=== PATIENT | female | born 1950 | race Two or more races ===

== ENCOUNTER 2017-12-08 17:12 | Emergency (ER) | payer OTHER ==
[~2017-12-08] VITALS: Ht 160 cm; Wt 90.7 kg
[~2017-12-08 17:12] MED LIST: CEPHALEXIN500 MG PO; COZAAR25 MG PO; LEVAQUIN250 MG/10 PO; MOTRIN50 MG PO
[2017-12-08] MEDS ORDERED: LOSARTAN-HCTZ1 EAC2 (17:21)
== END 2017-12-08 19:06 | disposition home or self-care (01) ==
LOC: ER 17:12
DX: S80.872A Other superficial bite, left lower leg, initial encounter (principal); W57.XXXA Bitten or stung by nonvenomous insect and other nonvenomous arthropods, initial encounter; Y93.89 Activity, other specified; Y92.89 Other specified places as the place of occurrence of the external cause; Y99.8 Other external cause status

== ENCOUNTER 2020-01-29 06:45 | Emergency (ER) | payer OTHER ==
[~2020-01-29] VITALS: Ht 160 cm; Wt 60.8 kg
[~2020-01-29 06:45] MED LIST changes: +LOSARTAN-HCTZ1 EAC2
== END 2020-01-29 10:53 | disposition home or self-care (01) ==
LOC: ER 06:45
DX: K29.60 Other gastritis without bleeding (principal); R11.10 Vomiting, unspecified